=== PATIENT | female | born 1955 | race Caucasian/White ===

== ENCOUNTER 2022-02-19 13:50 | Observation (INO) ==
[2022-02-19] MEDS ORDERED: SODIUM CHLORIDE 0.9% 1,000 ML IV STA (14:11)
[2022-02-19 14:56] LABS: Basophils % 0.3 % (0.0-0.8); Hemoglobin 14.2 GM/DL (12.0-16.0); Immature Granulocytes % 0.5 %; Immature Granulocytes Absolute 0.06 #; Lymphocytes # 2.3 10*3/uL (1.4-4.0); Lymphocytes % 19.7 % (21.3-54.2); Mean Corpuscular HGB Conc 33.8 GM/DL (32-36); Mean Corpuscular Volume 80.3 FL (87-102); Mean Platelet Volume 8.9 FL (9.6-12.0); Monocytes # 0.8 10*3/uL (0.11-0.8); Monocytes % 7.2 % (1.7-12.7); Neutrophils % 72.3 % (38.7-73.9); Platelet Count 478 T/CUMM (130-400); Red Blood Count 5.23 MC/CUMM (3.8-5.5); Red Cell Distribution Width 13.5 % (9.3-17.3); White Blood Count 11.5 T/CUMM (4-12)
[2022-02-19 15:07] LABS: INR 0.9; PT Patient Result 10.5 SECS (10.1-12.1)
[2022-02-19 15:26] LABS: Alanine Aminotransferase 28 U/L (13-56); Alkaline Phosphatase 131 U/L (45-117); Aspartate Amino Transferase 23 U/L (0-37); Blood Urea Nitrogen 20 MG/DL (7-18); Calcium 10.1 MG/DL (8.5-10.1); Carbon Dioxide 22 MMOL/L (21-32); Chloride 106 MMOL/L (98-107); Glucose 127 MG/DL (74-106); Osmolality,Calculated 283.4 MOS/KG (273-304); Potassium 4.2 MMOL/L (3.5-5.1); Sodium 140 MMOL/L (136-145); Total Protein 7.4 G/DL (6.4-8.2)
[2022-02-19 16:21] LABS: Barbiturates Screen,Urine Negative (Negative); Benzodiazepines Screen,Urine Negative (Negative); Cannabinoid Screen,Urine Negative (Negative); Opiate Screen,Urine Negative (Negative); Phencyclidine Screen,Urine Negative (Negative)
[2022-02-19] MEDS ORDERED: LABETALOL 20 MG/4 ML SYRINGE IV STA (16:30)
[2022-02-19 16:32] LABS: Mucus,Urine Occasional /LPF (Occasional); RBC,Urine 4 /HPF (0-4); Squamous Epithelial Cell,Urine Occasional /HPF (0-10)
[2022-02-19 16:33] LABS: Urine Appearance Clear (Clear); Urine Color Yellow (Yellow); Urine Specific Gravity > 1.030 (1.001-1.035); Urine pH 5.5 (4.5-8.0)
[2022-02-19 16:34] LABS: Bilirubin,Urine Moderate mg/dL (Negative); Blood, Urine Small mg/dL (Negative); Glucose,Urine (UA) Negative (Negative); Ketones,Urine >160 mg/dL (Negative); Nitrite,Urine Negative (Negative); Protein,Urine 100 mg/dL (Negative)
[2022-02-19] MEDS: ENOXAPARIN 40 MG/0.4 ML SYRINGE SUBCUT SCH (20:37)
[2022-02-20 06:09] LABS: Basophils % 0.4 % (0.0-0.8); Eosinophils % 0.3 % (0.00-10.9); Hematocrit 39.3 VOL% (35.7-47.0); Immature Granulocytes % 0.4 %; Immature Granulocytes Absolute 0.04 #; Lymphocytes # 2.9 10*3/uL (1.4-4.0); Lymphocytes % 26.9 % (21.3-54.2); Mean Corpuscular HGB Conc 33.1 GM/DL (32-36); Mean Corpuscular Volume 81.2 FL (87-102); Mean Platelet Volume 9.4 FL (9.6-12.0); Monocytes # 1.1 10*3/uL (0.11-0.8); Monocytes % 10.7 % (1.7-12.7); Neutrophils % 61.3 % (38.7-73.9); Platelet Count 453 T/CUMM (130-400); Red Blood Count 4.84 MC/CUMM (3.8-5.5); Red Cell Distribution Width 13.8 % (9.3-17.3); White Blood Count 10.7 T/CUMM (4-12)
[2022-02-20 06:25] LABS: Calcium 9.6 MG/DL (8.5-10.1); Osmolality,Calculated 281.4 MOS/KG (273-304); Potassium 3.6 MMOL/L (3.5-5.1)
[2022-02-20] MEDS: CLOPIDOGREL 75 MG TABLET PO SCH (11:22)
[2022-02-20] MEDS: carvediloL 12.5 MG TABLET PO SCH ×2 (11:22→20:26)
[2022-02-20] MEDS: KETOROLAC 30 MG/1 ML VIAL IV PRN ×2 (11:22→21:43)
[2022-02-20] MEDS: DULoxetine 30 MG CAPSULE PO SCH (11:22)
[2022-02-20] MEDS: OLANZapine 5 MG TABLET PO SCH (20:26)
[2022-02-20] MEDS: ENOXAPARIN 40 MG/0.4 ML SYRINGE SUBCUT SCH (20:26)
[2022-02-20] MEDS: OMEGA 3 ACID ETHYL ESTERS 1 GM CAPSULE PO SCH (20:26)
[2022-02-20] MEDS ORDERED: ALUM/MAG/SIMETH/LIDO VISC 1:1 30 ML BOTTLE PO ONE (20:30)
[2022-02-21] MEDS: PANTOPRAZOLE 40 MG TABLET PO SCH (05:42)
[2022-02-21 06:40] LABS: Basophils # 0.1 10*3/uL (0.0-0.2); Basophils % 0.6 % (0.0-0.8); Eosinophils # 0.1 10*3/uL (0.0-0.87); Eosinophils % 1.1 % (0.00-10.9); Hematocrit 39.1 VOL% (35.7-47.0); Hemoglobin 12.8 GM/DL (12.0-16.0); Immature Granulocytes % 0.4 %; Immature Granulocytes Absolute 0.03 #; Lymphocytes # 3.9 10*3/uL (1.4-4.0); Lymphocytes % 48.9 % (21.3-54.2); Mean Corpuscular HGB Conc 32.7 GM/DL (32-36); Mean Corpuscular Volume 82.3 FL (87-102); Mean Platelet Volume 9.5 FL (9.6-12.0); Monocytes % 12.3 % (1.7-12.7); Neutrophils % 36.7 % (38.7-73.9); Platelet Count 372 T/CUMM (130-400); Red Blood Count 4.75 MC/CUMM (3.8-5.5); Red Cell Distribution Width 14.1 % (9.3-17.3)
[2022-02-21 06:50] LABS: Calcium 9.9 MG/DL (8.5-10.1); Osmolality,Calculated 278.7 MOS/KG (273-304)
[2022-02-21 07:03] LABS: Eosinophils 2 % (0-10); Hypochromia Slight; Lymphocytes 41 % (20-55); Microcytosis Slight; Platelet Estimate Adequate; Total Cells Counted 100
[2022-02-21] MEDS ORDERED: SODIUM CHLORIDE 0.9% 1,000 ML IV ONE (07:56)
[2022-02-21] MEDS: NIACIN 500 MG TABLET PO SCH (10:40)
[2022-02-21] MEDS: OMEGA 3 ACID ETHYL ESTERS 1 GM CAPSULE PO SCH ×2 (10:40→21:27)
[2022-02-21] MEDS: DULoxetine 30 MG CAPSULE PO SCH (10:40)
[2022-02-21] MEDS: CLOPIDOGREL 75 MG TABLET PO SCH (10:40)
[2022-02-21] MEDS: EZETIMIBE 10 MG TABLET PO SCH (10:40)
[2022-02-21] MEDS: carvediloL 12.5 MG TABLET PO SCH ×2 (10:40→21:27)
[2022-02-21] MEDS: CHOLECALCIFEROL 1,000 UNIT TABLET PO SCH (10:41)
[2022-02-21] MEDS: POTASSIUM CHLORIDE 20 MEQ TABLET PO SCH ×2 (10:43→16:29)
[2022-02-21] MEDS: ENOXAPARIN 40 MG/0.4 ML SYRINGE SUBCUT SCH (21:27)
[2022-02-21] MEDS: OLANZapine 5 MG TABLET PO SCH (21:27)
[2022-02-21] MEDS: KETOROLAC 30 MG/1 ML VIAL IV PRN (23:30)
[2022-02-22] MEDS: PANTOPRAZOLE 40 MG TABLET PO SCH (05:33)
[2022-02-22 06:22] LABS: Basophils # 0.1 10*3/uL (0.0-0.2); Basophils % 0.7 % (0.0-0.8); Eosinophils # 0.5 10*3/uL (0.0-0.87); Eosinophils % 6.5 % (0.00-10.9); Hemoglobin 13.4 GM/DL (12.0-16.0); Immature Granulocytes % 0.1 %; Immature Granulocytes Absolute 0.01 #; Lymphocytes # 3.9 10*3/uL (1.4-4.0); Lymphocytes % 51.3 % (21.3-54.2); Mean Corpuscular HGB Conc 31.9 GM/DL (32-36); Mean Platelet Volume 10.1 FL (9.6-12.0); Monocytes # 0.8 10*3/uL (0.11-0.8); Monocytes % 10.4 % (1.7-12.7); Platelet Count 327 T/CUMM (130-400); Red Blood Count 4.94 MC/CUMM (3.8-5.5); Red Cell Distribution Width 14.4 % (9.3-17.3); White Blood Count 7.5 T/CUMM (4-12)
[2022-02-22 06:48] LABS: Calcium 9.1 MG/DL (8.5-10.1); Osmolality,Calculated 282.1 MOS/KG (273-304); Potassium 3.8 MMOL/L (3.5-5.1)
[2022-02-22 06:49] LABS: Eosinophils 3 % (0-10); Lymphocytes 53 % (20-55); Platelet Estimate Adequate; Total Cells Counted 100
[2022-02-22 07:39] VITALS: BP 147/86
[2022-02-22] MEDS: EZETIMIBE 10 MG TABLET PO SCH (09:28)
[2022-02-22] MEDS: DULoxetine 30 MG CAPSULE PO SCH (09:28)
[2022-02-22] MEDS: NIACIN 500 MG TABLET PO SCH (09:28)
[2022-02-22] MEDS: carvediloL 12.5 MG TABLET PO SCH (09:28)
[2022-02-22] MEDS: CHOLECALCIFEROL 1,000 UNIT TABLET PO SCH (09:29)
[2022-02-22] MEDS: OMEGA 3 ACID ETHYL ESTERS 1 GM CAPSULE PO SCH (09:29)
[2022-02-22] MEDS: CLOPIDOGREL 75 MG TABLET PO SCH (09:34)
== END 2022-02-22 11:30 | disposition home health service (06) ==
LOC: N.ED 13:50 → N.EDINP 13:50 → SUATTDRO 17:51 → N.5E 18:54
PROVIDERS: ADMIT Internal Medicine Geriatric Medicine; ATTEND Family Medicine